=== PATIENT | female | born 1975 | race Caucasian/White ===

== ENCOUNTER 2016-12-11 13:15 | Emergency (ER) | payer BC, OTHER ==
[2016-12-11 15:13] VITALS: BP 131/85
--- NOTE | 2016-12-11 16:16 | RAD ---
INDICATION: Chest pain and shortness of breath COMPARISON: None TECHNIQUE: PA and lateral views of the chest were obtained. FINDINGS: The heart and mediastinum are normal in size and contour. The lungs are grossly clear. There is no evidence of large pleural effusion. Visualized bones are normal for the patient's age. There is no radiographic evidence of free air beneath the diaphragm IMPRESSION: No radiographic evidence of acute cardiopulmonary disease.
--- NOTE | 2016-12-11 23:51 | UC ---
Magdaleno Blanc Aidan, scribed for Amrita Rodas MD on 12/11/16 at 1556 . Cardiac HPI - HPI Summary HPI Summary: 41 y/o female presents to the Urgent Care with a complaint of acute, constant, moderate left upper chest pain (10) described as a dull ache that sometimes radiates down her arm and to her back that has persisted for roughly 1 month. The pain is aggravated by inhalation, aggravated lying flat. No rash. No GI sx. She has had a cough, min productive, but has improved. Associated symptoms include SOB for the past 3 weeks, a mild fever of 100.3. Increased episodes of blue discoloration to hands (to which she attributes to Still's dz) . 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 - History of Current Complaint Chief Complaint: UCChestPain Stated Complaint: DULL CHEST PAIN,SOB Time Seen by Provider: 12/11/16 15:38 Hx Obtained From: Patient Onset/Duration: Gradual Onset, Lasting Weeks, Still Present Timing: Constant Initial Severity: Moderate Current Severity: Moderate Pain Intensity: 6 Chest Pain Location: Left Anterior, Left Lateral Character: Dull/Aching Aggravating: Deep Breaths - inhalation Alleviating: Nothing - unknown Associated Signs & Symptoms: Positive: SOB - for the past 3 weeks, Fever - mild 100.3. Negative: Negative - blue discoloration on hand that is temperature sensitive - Allergy/Home Medications Allergies/Adverse Reactions: Allergies Allergy/AdvReac Type Severity Reaction Status Date / Time Cefdinir [From Omnicef] Allergy Intermediate Rash Verified 12/11/16 18:44 Penicillins Allergy Intermediate Rash Verified 12/11/16 18:44 Sodium Benzoate Allergy Intermediate Rash Verified 12/11/16 18:44 [From Omnicef] Home Medications: Home Medications Butalb/Acetamin/Caff TAB* [Fioricet TAB*] 12/11/16 [History] Esomeprazole Magnesium [Nexium] 12/11/16 [History] Meclizine TAB* [Antivert 12.5 TAB*] 12/11/16 [History] Tizanidine HCl 12/11/16 [History Confirmed 12/11/16] PMH/Surg Hx/FS Hx/Imm Hx - Additional Past Medical History Additional PMH: Dx of Lupus andf Still's disease Previously Healthy: Yes - but see hpi Endocrine History Of: Denies: Diabetes, Thyroid Disease Cardiovascular History Of: Reports: Cardiac Disorders - Mitral valve prolapse Denies: Hypertension Respiratory History Of: Denies: COPD, Asthma GI/ History Of: Denies: Ulcer - Surgical History Surgical History: Yes Surgery Procedure, Year, and Place: C section x2 - Family History Known Family History: Positive: Hypertension - Social History Occupation: Employed Full-time Lives: Alone Alcohol Use: None Substance Use Type: None Smoking Status (MU): Never Smoked Tobacco Review of Systems Constitutional: Fever - mild 100.3 Skin: Other - blue discoloration to hand that is temperature sensitive Eyes: Negative ENT: Negative Respiratory: Shortness Of Breath Cardiovascular: Chest Pain Gastrointestinal: Negative Genitourinary: Negative Motor: Negative Neurovascular: Negative Musculoskeletal: Negative Neurological: Negative Psychological: Negative All Other Systems Reviewed And Are Negative: Yes Physical Exam Triage Information Reviewed: Yes Appearance: Well-Nourished Vital Signs: Initial Vital Signs Temp 98.8 F 12/11/16 15:08 Pulse 90 12/11/16 15:08 Resp 18 12/11/16 15:08 BP 131/85 12/11/16 15:08 Pulse Ox 100 12/11/16 15:08 Vital Signs Reviewed: Yes Eye Exam: Normal ENT Exam: Normal Neck exam: Normal Respiratory Exam: Normal, Other - no dyspnea, no tachypnea Respiratory: Positive: Chest non-tender, Lungs clear, Normal breath sounds, No respiratory distress, No accessory muscle use Cardiovascular Exam: Normal Cardiovascular: Positive: RRR, No Murmur, Pulses Normal, Brisk Capillary Refill , Other: - good general skin color, good capillary refill Abdominal Exam: Normal Abdomen Description: Positive: Nontender, No Organomegaly, Soft Bowel Sounds: Positive: Present Musculoskeletal Exam: Normal Musculoskeletal: Positive: Strength Intact Neurological Exam: Normal, Other - nonfocal, grossly intact Psychological Exam: Normal, Other - conversing easily and approperiately Skin Exam: Normal, Other - no visible or reported rash Hands currently not blue. Diagnostics - Radiology CHEST XR Xray Interpretation: No Acute Changes - IMPRESSION: NO RADIOGRAPHIC EVIDENCE OF ACUTE CARDIOPULMONARY DISEASE Radiology Interpretation Completed By: Radiologist - EKG Cardiac Rate: NL - 78 Cardiac Rhythm: Sinus: Normal - NORMAL SINUS RHYTHM, CO: 177, QTC 436 Re-Evaluation - Re-Evaluation First Eval Re-Evaluation Time: 16:40 - Dr. Rodas discussed the possibility of a thrombosis and the patient agreed that the best discourse is transfer to the ED , which is what Dr. Rodas recommends. Change: Unchanged - Assessment/Plan Course Of Treatment: No new problems while in the [facility]. I reviewed the EKG and CXR with Ms. Calles. No change EKG since 2011, sinus rhythm. Ms. Calles has a hx of Still's disease. I considered the below diff dx's. While I can not completely exclude, I doubt primary cardiac origen (although she may benefit from a future holter monitor), I am concerned about pulmonary issues not evident on cxr. Including albeit not limited to pulm emb, pulm htn ( although ekg ok), infectious, etc. Recommend further evaluation in the ER. Ms. Calles carefully considered. She will go, but pov. Verbally reviewed recommendation for EMS, but she declines. I called the ED d/w PA. Ms. Calles was given the opportunity to ask several questions to which I answered to the best of my ability. - Clinical Impression Provider Diagnoses: L upper chest pain Discharge - Discharge Plan Condition: Stable Disposition: TRANS HIGHER LVL OF CARE FAC Referrals: Louisa Jones MD [Primary Care Provider] - The documentation as recorded by the Magdaleno canales Aidan accurately reflects the service I personally performed and the decisions made by me, Amrita Rodas MD.
== END 2016-12-11 20:10 | disposition short-term general hospital (02) ==
LOC: UCEAST 13:15
DX: R07.9 Chest pain, unspecified (principal); I34.1 Nonrheumatic mitral (valve) prolapse; Z88.0 Allergy status to penicillin; M08.20 Juvenile rheumatoid arthritis with systemic onset, unspecified site
CPT/HCPCS: 71020; 93005; 99202; G0463

== ENCOUNTER 2016-12-11 18:41 | Emergency (ER) | payer BC ==
[2016-12-11 19:56] LABS: Hematocrit 37 % (35-47); Hemoglobin 12.2 g/dl (12.0-16.0); Mean Corpuscular HGB Conc 33 g/dl (31-36); Mean Corpuscular Hemoglobin 27 pg (27-31); Mean Corpuscular Volume 82 fL (80-97); Mean Platelet Volume 8 um3 (7.4-10.4); Red Blood Count 4.47 10^6/ul (4.0-5.4); Red Cell Distribution Width 13 % (10.5-15); White Blood Count 8.3 10^3/ul (3.5-10.8)
[2016-12-11 20:11] LABS: Albumin 3.8 g/dL (3.2-5.2); BUN/Creatinine Ratio 13.8 (8-20); Calcium 9.2 mg/dL (8.6-10.3); EGFR African American 102.2 (>60); EGFR Non-African American 79.4 (>60); Globulin 3.4 g/dL (2-4); Magnesium 1.9 mg/dL (1.9-2.7); Potassium 3.3 mmol/L (3.5-5.0); Total Bilirubin 0.4 mg/dL (0.2-1.0); Total Protein 7.2 g/dL (6.4-8.9)
[2016-12-11 20:42] LABS: Erythrocyte Sed Rate 41 mm/Hr (0-14)
--- NOTE | 2016-12-11 20:53 | ED ---
Ajit Blanc Billy, scribed for Derrick Bales MD on 12/11/16 at 1918 . HPI Chest Pain - HPI Summary HPI Summary: Patient is a 41 year-old female coming to [facility] presenting with intermittent left anterior chest pain for the last month. Pain severity 6/10. She states that the symptoms worsened 2 days ago, when she decided to begin a new exercise regimen. During that time, she began to feel fatigue, SOB, palpitations, and she has had discolored, blue fingertips. Patient has informed her PCP, Dr. Jones, who referred her to the ED. - History of Current Complaint Chief Complaint: EDChestPainROMI Time Seen by Provider: 12/11/16 19:11 Hx Obtained From: Patient Onset/Duration: Started Weeks Ago, Worse Since - 2 days ago Timing: Intermittent Initial Severity: Moderate Current Severity: Moderate Pain Intensity: 6 Pain Scale Used: 0-10 Numeric Chest Pain Location: Left Anterior Chest Pain Radiates: No Aggravating Factor(s): Exertion Alleviating Factor(s): Nothing Associated Signs and Symptoms: Positive: Chest Pain, Shortness of Breath, Palpitations, Other: - fatigue; discolored blue fingers/hands - Allergy/Home Medications Allergies/Adverse Reactions: Allergies Allergy/AdvReac Type Severity Reaction Status Date / Time Cefdinir [From Omnicef] Allergy Intermediate Rash Verified 12/11/16 18:44 Penicillins Allergy Intermediate Rash Verified 12/11/16 18:44 Sodium Benzoate Allergy Intermediate Rash Verified 12/11/16 18:44 [From Omnicef] PMH/Surg Hx/FS Hx/Imm Hx Endocrine/Hematology History: Reports: Hx Systemic Lupus Erythematosus Denies: Hx Diabetes, Hx Thyroid Disease Cardiovascular History: Reports: Other Cardiovascular Problems/Disorders - MITROVALVE PROLAPSE Denies: Hx Hypertension Respiratory History: Denies: Hx Asthma, Hx Chronic Obstructive Pulmonary Disease (COPD) GI History: Denies: Hx Ulcer - Surgical History Surgery Procedure, Year, and Place: C section x2 Infectious Disease History: No Infectious Disease History: Denies: Hx Hepatitis, Hx Human Immunodeficiency Virus (HIV), Traveled Outside the [place] in Last 30 Days - Family History Known Family History: Positive: Hypertension - Social History Alcohol Use: None Substance Use Type: Reports: None Smoking Status (MU): Never Smoked Tobacco Review of Systems Positive: Fatigue Positive: Palpitations, Chest Pain Positive: Shortness Of Breath Positive: Other - blueness in the hands All Other Systems Reviewed And Are Negative: Yes Physical Exam Triage Information Reviewed: Yes Vital Signs On Initial Exam: Initial Vitals Temp Pulse Resp BP Pulse Ox 97.2 F 86 18 123/76 100 12/11/16 18:44 12/11/16 18:44 12/11/16 18:44 12/11/16 18:44 12/11/16 18:44 Vital Signs Reviewed: Yes Appearance: Positive: Well-Appearing, No Pain Distress Skin: Positive: Warm Head/Face: Positive: Normal Head/Face Inspection Eyes: Positive: JOANNE ENT: Positive: Hearing grossly normal Neck: Positive: Supple Respiratory/Lung Sounds: Positive: Clear to Auscultation, Breath Sounds Present Cardiovascular: Positive: RRR Abdomen Description: Positive: Nontender, Soft Bowel Sounds: Positive: Present Musculoskeletal: Positive: Strength/ROM Intact Neurological: Positive: Sensory/Motor Intact, Alert, Oriented to Person Place, Time Psychiatric: Positive: Affect/Mood Appropriate Diagnostics - Vital Signs Vital Signs Temp Pulse Resp BP Pulse Ox 12/11/16 18:54 86 99 12/11/16 18:53 132/72 12/11/16 18:44 97.2 F 86 18 123/76 100 - Laboratory Result Diagrams: 12/11/16 19:45 12/11/16 19:45 Lab Statement: Any lab studies that have been ordered have been reviewed, and results considered in the medical decision making process. - EKG 1851 EKG Interpretation: NSR 80 bpm, no ST elevation Re-Evaluation - Re-Evaluation First Eval Change: Improved - results d/w pt Chest Pain Course/Dx - Diagnoses Provider Diagnoses: Chest pain Discharge - Discharge Plan Condition: Stable Disposition: HOME Patient Education Materials: Chest Pain (ED) Referrals: Louisa Jones MD [Primary Care Provider] - The documentation as recorded by the Ajit canales Billy accurately reflects the service I personally performed and the decisions made by , Derrick Bales MD.
[2016-12-11 21:00] VITALS: BP 110/66
== END 2016-12-11 21:15 | disposition home or self-care (01) ==
LOC: ED 18:41
DX: R07.9 Chest pain, unspecified (principal); R06.02 Shortness of breath; R00.2 Palpitations; R53.83 Other fatigue
CPT/HCPCS: 36415; 80053; 82550; 83735; 85025; 85379; 85652; 86038; 99282

== ENCOUNTER 2017-04-02 09:25 | Emergency (ER) | payer OTHER ==
[2017-04-02] MEDS ORDERED: Cyclobenzaprine TAB* 10 MG PO ONE (10:11)
--- NOTE | 2017-04-02 10:33 | RAD ---
Indication: Severe thoracic pain without injury. Comparison: December 11, 2016 PA and lateral chest radiographs. Technique: Standing AP and lateral views centered at the thoracic lumbar junction. Report: Normal lower thoracic and visualized lumbar spine alignment. The vertebral bodies are normal in height. No fracture or focal osseous lesions evident. Preserved disc spaces throughout. Unremarkable paravertebral soft tissue contours. IMPRESSION: Negative radiographic exam of the dorsal spine.
[2017-04-02] MEDS ORDERED: traMADol TAB* 50 MG ONE ×2 (11:02→11:05)
[2017-04-02] MEDS ORDERED: traMADol TAB* 50 MG PO ONE (11:07)
--- NOTE | 2017-04-02 11:45 | ED ---
Back Pain - HPI Summary HPI Summary: Patient presents with 1 week worsening thoracic back pain with no acute trauma or injury known. Pain is to the left of the thoracic spine and radiates to the rib cage. Denies SOB. Pain is 10/10, stabbing and constant. Worse with movement, better with rest and standing. She had a massage 3 days ago which had improved her symptoms slightly and felt better yesterday - pain was 5/10 and constant. Today, worsening pain upon wakening and stating she could not get up off the floor. She takes muscle relaxers at home for migraines without relief of symptoms. Denies other pain or complaints at this time. - History of Current Complaint Chief Complaint: EDBackInjuryPain Stated Complaint: BACK PAIN Time Seen by Provider: 04/02/17 09:34 Hx Obtained From: Patient Hx Last Menstrual Period: 3 wks ago Onset/Duration: Sudden Onset Onset/Duration: Started Days Ago Timing: Constant Back Pain Location: Is Discrete @ - lateral to the thoracic spine Pain Intensity: 10 Pain Scale Used: 0-10 Numeric Character: Sharp, Aching, Throbbing Aggravating Symptom(s): Movement Alleviating Symptom(s): Rest Associated Signs And Symptoms: Positive: Negative - Risk Factors AAA Risk Factors: Negative TAD Risk Factors: Negative Cauda Equina Risk Factors: Negative Epidural Abscess Risk Factors: Negative - Allergies/Home Medications Allergies/Adverse Reactions: Allergies Allergy/AdvReac Type Severity Reaction Status Date / Time Cefdinir [From Omnicef] Allergy Intermediate Rash Verified 12/11/16 18:44 Penicillins Allergy Intermediate Rash Verified 12/11/16 18:44 Sodium Benzoate Allergy Intermediate Rash Verified 12/11/16 18:44 [From Omnicef] PMH/Surg Hx/FS Hx/Imm Hx Previously Healthy: Yes Endocrine/Hematology History: Reports: Hx Systemic Lupus Erythematosus Denies: Hx Diabetes, Hx Thyroid Disease Cardiovascular History: Reports: Other Cardiovascular Problems/Disorders - MITROVALVE PROLAPSE Denies: Hx Hypertension Respiratory History: Denies: Hx Asthma, Hx Chronic Obstructive Pulmonary Disease (COPD) GI History: Denies: Hx Ulcer - Surgical History Surgery Procedure, Year, and Place: C section x2 - Immunization History Hx Pertussis Vaccination: No Immunizations Up to Date: Unable to Obtain/Confirm Infectious Disease History: No Infectious Disease History: Denies: Hx Hepatitis, Hx Human Immunodeficiency Virus (HIV), Traveled Outside the [place] in Last 30 Days - Family History Known Family History: Positive: Hypertension - Social History Occupation: Employed Full-time Lives: With Family Alcohol Use: None Hx Substance Use: No Substance Use Type: Reports: None Smoking Status (MU): Never Smoked Tobacco Review of Systems Constitutional: Negative Eyes: Negative Cardiovascular: Negative Respiratory: Negative Gastrointestinal: Negative Positive: no symptoms reported, see HPI Positive: Arthralgia, Myalgia Skin: Negative Psychological: Normal All Other Systems Reviewed And Are Negative: Yes Physical Exam Triage Information Reviewed: Yes Vital Signs On Initial Exam: Initial Vitals Temp Pulse Resp BP Pulse Ox 99.1 F 104 20 127/86 100 04/02/17 09:29 04/02/17 09:29 04/02/17 09:29 04/02/17 09:29 04/02/17 09:29 Vital Signs Reviewed: Yes Appearance: Positive: Well-Appearing, No Pain Distress, Well-Nourished Skin: Positive: Warm, Skin Color Reflects Adequate Perfusion Neck: Positive: Supple, Nontender, No Lymphadenopathy Respiratory/Lung Sounds: Positive: Clear to Auscultation, Breath Sounds Present Cardiovascular: Positive: Normal, RRR Musculoskeletal: Positive: Pain @ - lateral to the T8 spine at 10/10 Neurological: Positive: Sensory/Motor Intact, Alert, Oriented to Person Place, Time, Speech Normal Psychiatric: Positive: Normal - [place] Coma Scale Coma Scale Total: 15 Diagnostics - Vital Signs Vital Signs Temp Pulse Resp BP Pulse Ox 04/02/17 09:50 97.9 F 78 20 120/78 100 04/02/17 09:29 99.1 F 104 20 127/86 100 - Laboratory Lab Statement: Any lab studies that have been ordered have been reviewed, and results considered in the medical decision making process. Back Pain Course/Dx - Course Course Of Treatment: lateral to the T8 spine at 10/10 - xray negative for findings. Pain out of proportion to PE and xray so patient sent to CT at her request. CT negative for any findings. Will add on steroids and pain management to her mucsle relaxer. Encouraged massage therapy as well. Patient will follow up if any symptoms become worse. - Diagnoses Differential Diagnosis/HQI/PQRI: Positive: Herniated Disc, Strain, Sprain Provider Diagnoses: Spasm of thoracic back muscle Images - Images Full Body (No Head): 1 - pain on palpation Discharge - Discharge Plan Condition: Stable Disposition: HOME Prescriptions: predniSONE TAB* [Deltasone TAB*] 50 mg PO DAILY #5 tab MDD 1 traMADol TAB* [Ultram*] 25 mg PO Q6HR PRN #12 tab MDD 4 PRN Reason: Pain Patient Education Materials: Lower Back Exercises (ED), Thoracic Back Strain ( ED) Forms: *Work Release Referrals: Louisa Jones MD [Primary Care Provider] - Additional Instructions: Tramadol as needed for discomfort. Prednisone daily in the morning for 5 days Ibuprofen 600mg three times daily with meals for discomfort. Return to ED if symptoms worsen or fail to improve, notice worsening swelling, warmth or redness around the joint, develop fever, or pain is uncontrolled with OTC medications. Moist heat to the area for comfort. Warm showers or baths may improve symptoms. It is important to remain mobile as tolerated to prevent stiffening of the joints and delay healing. Follow up with your PCP. If symptoms remain for > 6 weeks, please seek special medical attention from an orthopedic physician.
--- NOTE | 2017-04-02 11:53 | RAD ---
HISTORY: Thoracic spine pain COMPARISONS: Plain film dated April 02, 2017 TECHNIQUE: Multiple contiguous axial CT scans were obtained of the thoracic spine without intravenous contrast, with coronal and sagittal multiplanar reformations. FINDINGS: SPINAL CANAL: Evaluation of the central canal is limited on CT technique; however, there is no obvious canalicular mass or epidural hemorrhage. ALIGNMENT: The alignment is normal. VERTEBRAL BODIES: The vertebral bodies are preserved in height. The bones are normal in attenuation. JOINTS: No subluxation or dislocation MUSCULATURE: Unremarkable INTERVERTEBRAL DISCS: There is mild diffuse loss of intervertebral disc height throughout the spine. AXIAL IMAGES: There is no osseous central canal stenosis or neuroforaminal narrowing. SOFT TISSUES: The visualized soft tissues of the chest and abdomen are unremarkable. OTHER: None IMPRESSION: MILD DEGENERATIVE DISC DISEASE. NO OSSEOUS NEURAL FORAMINAL NARROWING OR CENTRAL CANAL STENOSIS.
[2017-04-02 13:00] VITALS: BP 121/62
== END 2017-04-02 12:58 | disposition home or self-care (01) ==
LOC: ED 09:25
DX: M62.830 Muscle spasm of back (principal)
CPT/HCPCS: 72080; 72128; 99282; A9270-GY

== ENCOUNTER 2017-07-06 07:27 | Day surgery (SDC) | payer BC, OTHER ==
[2017-07-06] MEDS ORDERED: Morphine INJ* 4 MG/ML 1 ML CARPUJECT IV ONE ×2 (08:03→09:10)
[2017-07-06] MEDS ORDERED: Ondansetron INJ* 2 MG/ML VIAL IV ONE ×2 (08:03→09:10)
[2017-07-06] MEDS ORDERED: NS 0.9% 1000 ML* 1,000 ML IV ONE (08:03)
[2017-07-06 08:23] LABS: Hematocrit 37 % (35-47); Hemoglobin 12.4 g/dl (12.0-16.0); Mean Corpuscular HGB Conc 33 g/dl (31-36); Mean Corpuscular Hemoglobin 28 pg (27-31); Mean Corpuscular Volume 83 fL (80-97); Mean Platelet Volume 8 um3 (7.4-10.4); Red Blood Count 4.46 10^6/ul (4.0-5.4); Red Cell Distribution Width 12 % (10.5-15); White Blood Count 13.6 10^3/ul (3.5-10.8)
[2017-07-06 08:41] LABS: ALT 16 U/L (7-52); AST 17 U/L (13-39); Alkaline Phosphatase 60 U/L (34-104); Anion Gap 8 mmol/L (2-11); BUN/Creatinine Ratio 17.8 (8-20); Blood Urea Nitrogen 13 mg/dL (6-24); CO2 Carbon Dioxide 24 mmol/L (22-32); Calcium 9.1 mg/dL (8.6-10.3); Chloride 103 mmol/L (101-111); EGFR Non-African American 87.9 (>60); Globulin 3.5 g/dL (2-4); Glucose 120 mg/dL (70-100); Lipase < 10 U/L (11.0-82.0); Potassium 4.1 mmol/L (3.5-5.0); Sodium 135 mmol/L (133-145); Total Protein 7.5 g/dL (6.4-8.9)
[2017-07-06] MEDS ORDERED: Iohexol 300* (CONTRAST) 10 ML SDV IV ONE (09:36)
--- NOTE | 2017-07-06 11:05 | RAD ---
CLINICAL HISTORY: ] Abdominal pain with vomiting. Relevant surgical history includes x2. COMPARISON: CT abdomen pelvis December 10, 2012 TECHNIQUE: Contrast enhanced CT examination of the abdomen and pelvis from the lung bases through the initial tuberosities. The patient received 100 mL Omnipaque 300 intravenously prior to imaging.The patient received oral contrast as well prior to imaging. FINDINGS: VISUALIZED LUNG BASES: The visualized lung bases are grossly clear. There is no pleural effusion. ABDOMEN AND PELVIS: The liver, spleen, pancreas and adrenal glands are grossly normal in appearance. The gallbladder is normal. The kidneys are normal in appearance without focal mass, calcification or signs of hydronephrosis. The oral contrast as only progressed as far as the duodenum which limits evaluation of the small bowel and colon. The small and large bowel are not distended. Best depicted on the coronal plane images (image 34 of 109) the cecum is located at the midline abdomen immediately superior to the urinary bladder. The appendix courses towards the patient's right of midline before descending inferiorly. At the proximal portion of the appendix there is hyperdense material consistent with an appendicolith (image 32). Distal to this the appendix is fluid-filled measuring 14 mm in diameter (axial image 61 through 65) with more hyperdense material in its distalmost portion (image 65). There is faint periappendiceal infiltration of the fat. The gas and stool-filled colon is otherwise grossly normal in appearance. There is no gross retroperitoneal or mesenteric lymphadenopathy. Compared to the contralateral right ovarian vein, the left ovarian vein appears to be contrast filled and is top normal measuring 6 mm in diameter (image 32 of 98). The ovarian vein can be followed inferiorly communicating with mildly enlarged left periuterine veins measuring 6 mm in diameter (image 68). There is trace fluid in the cul-de-sac. The pelvic viscera is otherwise normal in appearance. The abdominal aorta and iliac arteries are normal in course and diameter. There are no sinister bone lesions. IMPRESSION: 1. In the correct clinical setting CT findings are most consistent with acute appendicitis as described in detail above. 2. Incidentally noted is the appearance of reflux in the left ovarian vein communicating with mildly enlarged left periuterine veins. Such an appearance could be seen in the setting of pelvic congestion syndrome which is characterized by a vague constellation of symptoms including gravity dependent, late day pelvic pain, varicose veins overlying the pelvis and lower extremities, dyspareunia and/or inconsistent gastrointestinal symptoms.
[2017-07-06] MEDS ORDERED: fentaNYL* 50 MCG/ML 2 ML VIAL (100 MCG VIAL) IV SLOW PU ONE ×3 (11:20→12:33)
[2017-07-06] MEDS ORDERED: fentaNYL* 50 MCG/ML 2 ML VIAL (100 MCG VIAL) ONE ×3 (11:22→15:33)
[2017-07-06 11:23] LABS: Urine Bacteria Absent (Absent); Urine Bilirubin Negative (Negative); Urine Glucose Negative (Negative); Urine Nitrite Negative (Negative)
[2017-07-06] MEDS ORDERED: Famotidine IV* 10 MG/ML 2 ML (20 mg) IV SLOW PU ONE (12:56)
[2017-07-06] MEDS ORDERED: Famotidine IV* 10 MG/ML 2 ML (20 mg) ONE (13:01)
[2017-07-06] MEDS ORDERED: Levofloxacin 750 MG IVPREMIX(* 750 MG/150 ML BAG ONE (13:24)
[2017-07-06] MEDS ORDERED: Atracurium* 10 MG/ML 10 ML VIAL ONE (13:41)
[2017-07-06] MEDS ORDERED: Midazolam* 1 MG/ML 5 ML VIAL (5 MG) ONE (13:41)
[2017-07-06] MEDS ORDERED: KETAMINE HCL* 50 MG/ML 10 ML VIAL ONE (13:41)
[2017-07-06] MEDS ORDERED: Bupivacaine 0.25% SDV* 30 ML ONE (13:52)
[2017-07-06] MEDS ORDERED: Clindamycin 900 MG IVPREMIX(* 900 MG/50 ML SDV IV ONE (13:53)
--- NOTE | 2017-07-06 14:11 | HP ---
CC: Dr. Louisa Jones DATE OF ADMISSION: 07/06/2017. DATE OF DICTATION: 07/06/2017. CHIEF COMPLAINT: Abdominal pain. HISTORY OF PRESENT ILLNESS: The patient is a 42-year-old female who was awakened in the middle of the night with abdominal pain. She describes it as primary being across the central abdomen, but then she states it also went up into the epigastric area, up into the chest and up to her shoulder. Subsequently, she developed some nausea and vomiting. She has had no diarrhea. Denies fever and chills. No recent trauma or injury. PAST SURGICAL HISTORY: Two C-sections and some dental surgery. MEDICATIONS: 1. control pills. 2. Nexium prn for heartburn. 3. Fioricet prn for migraines. 4. Meclizine prn for dizziness. ALLERGIES: PENICILLIN AND CEPHALOSPORINS, POSSIBLY LACTOSE INTOLERANCE. FAMILY HISTORY: Negative for any bleeding or clotting tendencies as far as she knows. 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 She is . They have two children at home. They also keep horses. She is not a heavy smoker or drinker. REVIEW OF SYSTEMS: Positive all over. She has occasional migraines. She has had occasional issues with the esophagus that was diagnosed as some autoimmune disease, although she does not take any suppressive medication. She had a heart murmur when she was younger and that never amounted to anything. She has a history of hepatic adenoma. History of Gilbert's disease. She also gives a history of Von Willebrand disease, although she says they told her that is was intermittent, it was not there all the time. She did not have any treatment for her C-sections. She says with one of the C-sections she bleed a lot, with one of them she did not bleed at all. She denies any neuromuscular or psych issues. PHYSICAL EXAMINATION GENERAL: She is a well-developed, well-nourished female consistent with stated age. SKIN: Warm and well-perfused. She is not diaphoretic. She is not jaundice. She does appear quite uncomfortably and ill. VITAL SIGNS: She is afebrile with a pulse of 82, respirations 16, blood pressure 126/78. HEENT: Head and neck are atraumatic. There is no obvious adenopathy. LUNGS: Breathing is easy and unlabored. HEART: Regular. I do not appreciate any murmurs. ABDOMEN: Soft, nondistended, exquisitely tender in the right lower quadrant. She has a Rovsing's sign and referred rebound tenderness. There is no guarding. There is no palpable mass. There is no hernia. EXTREMITIES: Well-perfused and without edema. LABORATORY DATA: Laboratory studies show a white blood count of 13,600 with normal platelets. There is a left shift on the differential. Hemoglobin is normal. Electrolytes, lactic acid, and bilirubin are all normal. C-reactive protein is mildly elevated at 20. Urinalysis is concentrated without any evidence of urinary infection. CT scan is consistent with acute appendicitis. IMPRESSION: Jhlsw-dsi-nbpv-old female with acute appendicitis with appendiceal fecal lithiasis. She also has a questionable history of Von Willebrand disease as well as some kind of untreated autoimmune disorder. PLAN: I discussed the case with Dr. Kerr and his feeling was that since the patient had had two C-sections without having DDAVP or other treatment for her Von Willebrand and that although she had bled somewhat with one of the C- sections, did not bleed enough to require transfusion, we felt that she could undergo laparoscopic appendectomy without treating the Von Willebrand. Therefore, we will proceed with laparoscopic appendectomy done some time today and we will give her appropriate prophylactic antibiotics. [id number]/[facility] #: [id number] APARNA
[2017-07-06] MEDS ORDERED: Scopolamine 1.5 mg* PATCH TRANSDERM PRN (14:13)
[2017-07-06] MEDS ORDERED: PROCHLORPERAZINE INJ 5 MG/ML 2 ML VIAL IV PRN (14:13)
[2017-07-06] MEDS ORDERED: oxyCODONE/Acetamin 5/325 MG* TAB PO PRN ×2 (14:13→15:35)
[2017-07-06] MEDS ORDERED: Ondansetron INJ* 2 MG/ML VIAL ONE (14:46)
[2017-07-06] MEDS ORDERED: Dexamethasone IV* 4 MG/ML 1 ML (4 MG) ONE (14:46)
[2017-07-06] MEDS ORDERED: Lidocaine 2% PF * 5 ML VIAL ONE (14:46)
[2017-07-06] MEDS ORDERED: PROCHLORPERAZINE INJ 5 MG/ML 2 ML VIAL ONE (14:46)
[2017-07-06] MEDS ORDERED: Propofol* 10 MG/ML 20 ML BTL IV PUSH ONE (14:46)
[2017-07-06] MEDS ORDERED: Glycopyrrolate IV* 0.2 MG/ML 1 ML VIAL ONE (14:48)
[2017-07-06] MEDS ORDERED: Neostigmine Methylsulfate* 2 MG/2 ML SYRINGE ONE (14:48)
[2017-07-06] MEDS ORDERED: Succinylcholine* 20 MG/ML 10 ML VIAL ONE (15:19)
[2017-07-06] MEDS ORDERED: Phenylephrine IV* 40 MCG/ML 10 ML SYRINGE ONE (15:19)
[2017-07-06] MEDS ORDERED: Morphine INJ* 4 MG/ML 1 ML CARPUJECT ONE (15:33)
[2017-07-06] MEDS: fentaNYL* 50 MCG/ML 2 ML VIAL (100 MCG VIAL) IV PRN ×2 (15:34→15:46)
[2017-07-06] MEDS: Morphine INJ* 2 MG/ML 1 ML CARPUJECT IV PRN ×2 (15:37→15:46)
--- NOTE | 2017-07-06 15:41 | PN ---
Progress Note - Progress Note Date of Service: 07/06/17 Note: Brief Operative Note: Pre-op: Acute appendicitis Post-op: Same Procedure: Laparoscopic appendectomy Surgeon: Dr. Basilio General Counselor: MERI Keen Anaesthesia: GETA EBL: Minimal Fluids: LR 1000 cc Drains: None Catheter: None Specimen: Vermiform Appendix Findings: See dictated op note
[2017-07-06 18:42] VITALS: BP 120/82
--- NOTE | 2017-07-07 03:23 | OP ---
CC: Dr. Louisa Jones * DATE OF OPERATION: 07/06/17 - [facility] DATE OF : 77 SURGEON: Derrick Basilio MD RETAIL WIRELESS SALES CONSULTANT: MERI Adler ANESTHESIOLOGIST: Dr. Derrick Manriquez. ANESTHESIA: General anesthetic, local infiltration. PRE-OP DIAGNOSIS: Appendicitis. POST-OP DIAGNOSIS: Appendicitis. OPERATIVE PROCEDURE: Laparoscopic appendectomy. DESCRIPTION OF PROCEDURE: The patient was supine on the operative table. After adequate general anesthetic, compression stockings, Victor Manuel Hugger warmer, and intravenous antibiotics, the abdomen was prepped with antiseptic, draped in a sterile fashion. Local infiltrative anesthesia was administered and small umbilical incision was created. Blunt port cannula was placed, insufflation was carried out with carbon dioxide, additional cannulae 5 mm left lower quadrant and left mid abdomen were placed through small stab wounds under direct vision. There were some omental adhesions up to the anterior abdominal wall and these were taken down with scissor cautery with no bleeding and the appendix was then tented upward. The base of the appendix was skinny and normal. The rest of the appendix was dilated to over a centimeter and with inflammatory change. The base of the appendix was out using a [place] dissector and divided using an Endo CHRISTINE stapler with a 45 mm gaytan cartridge. The mesoappendix was divided using a single firing of a 45 mm gallegos cartridge. This created good hemostasis. The operative field was swabbed out with a 4 x 4 and again examined, hemostasis was excellent. The appendix was placed in the retrieval bag and brought out through the umbilical site along with the 4x4. A pneumoperitoneum was allowed to escape. Umbilical fascia was closed with 0 Vicryl. Skin was closed with 5-0 Vicryl followed by Steri- Strips. She tolerated the procedure well, was awakened and brought to the Recovery in good condition. There were no complications. No drains. Pathologic specimen was appendix. Sponge and instrument counts correct. Estimated blood loss was less than 10 mL. [id number]/[facility] #: [id number] [facility]
--- NOTE | 2017-07-07 18:49 | ED ---
Fox Blanc Thomas, scribed for Yuniel Villagomez MD on 07/06/17 at 0816 . Abdominal Pain/Female - HPI Summary HPI Summary: The pt is a 42 y/o F presenting to the ED c/o R-sided abd pain that began today at 03:00. The pain radiates to her left abdomen. The pain is rated 10/10. The pain is aggravated by nothing and is alleviated by nothing. Her last meal was last night and she ate pancakes. She did not eat a lot of syrup. The patient has treated the pain with nothing [address] SQL DEVELOPER. Pt additionally c/o N/V. The pain began before the N/V. Pt denies any other complaints at this time. She denies prior episodes of pain similar to this. She is accompanied by a male. - History of Current Complaint Chief Complaint: EDAbdPain Stated Complaint: RT ABD PAIN/VOMITING Time Seen by Provider: 07/06/17 07:44 Hx Obtained From: Patient, Family/Cyber Policy And Strategy Planner - male is present Hx Last Menstrual Period: 3 wks ago Onset/Duration: Lasting Hours - onset this AM at 03:00, Still Present Timing: Constant Severity Currently: Severe - R-sided abdomen Pain Intensity: 10 Pain Scale Used: 0-10 Numeric Location: Other - R-sided abdomen Radiates: Yes Radiates to: Other - L-sided abdomen Aggravating Factor(s): Nothing Alleviating Factor(s): Nothing Associated Signs and Symptoms: Positive: Nausea, Vomiting. Negative: Fever Allergies/Adverse Reactions: Allergies Allergy/AdvReac Type Severity Reaction Status Date / Time Cefdinir [From Omnicef] Allergy Intermediate Rash Verified 12/11/16 18:44 Penicillins Allergy Intermediate Rash Verified 12/11/16 18:44 Sodium Benzoate Allergy Intermediate Rash Verified 12/11/16 18:44 [From Omnicef] Home Medications: Home Medications Ppqqeewuhn-Nyrryqz-Egbkcdkl [Fiorinal 50-325-40 mg-] 1 - 2 cap PO DAILY PRN [History Confirmed 07/06/17] Drospirenone-Ethinyl Estradiol [Gianvi 3-0.02 mg] 1 tab PO DAILY 07/06/17 [ History Confirmed 07/06/17] Esomeprazole(NF) [NexIUM(NF)] 40 mg PO DAILY 07/06/17 [History Confirmed ] Meclizine TAB* [Antivert 12.5 TAB*] 25 mg PO BID PRN 07/06/17 [History Confirmed 07/06/17] PMH/Surg Hx/FS Hx/Imm Hx Previously Healthy: No - Stills disease, Von Willebrand disease, Gilbert syndrome Endocrine/Hematology History: Reports: Hx Systemic Lupus Erythematosus Denies: Hx Diabetes, Hx Thyroid Disease Cardiovascular History: Reports: Other Cardiovascular Problems/Disorders - MITROVALVE PROLAPSE Denies: Hx Hypertension Respiratory History: Denies: Hx Asthma, Hx Chronic Obstructive Pulmonary Disease (COPD) GI History: Denies: Hx Ulcer - Surgical History Surgery Procedure, Year, and Place: C section x2 Infectious Disease History: No Infectious Disease History: Denies: Hx Hepatitis, Hx Human Immunodeficiency Virus (HIV), Traveled Outside the [place] in Last 30 Days - Family History Known Family History: Positive: Hypertension - Social History Alcohol Use: Rare Hx Substance Use: No Substance Use Type: Reports: None Smoking Status (MU): Never Smoked Tobacco Review of Systems Negative: Fever Positive: Abdominal Pain - R-sided with onset today at 03:00, Vomiting, Nausea All Other Systems Reviewed And Are Negative: Yes Physical Exam - Summary Physical Exam Summary: VITAL SIGNS: Reviewed. GENERAL: Patient is a well-developed and nourished female who is lying comfortable in the stretcher. Patient is not in any acute respiratory distress. HEAD AND FACE: Normocephalic and atraumatic. EYES: PERRLA, EOMI x 2, No injected conjunctiva. EARS: Hearing grossly intact. Ear canals and tympanic membranes are WNL. MOUTH: Oropharynx within normal limits. NECK: Supple, trachea is midline, no adenopathy, no JVD. CHEST: Symmetric, no tenderness at palpation LUNGS: Clear to auscultation bilaterally. No wheezing or crackles. CVS: RRR, S1 and S2 present, no murmurs or gallops appreciated. ABDOMEN: She is tender in the RLQ. There is guarding but no rebound. Soft. No signs of distention. Positive bowel sounds. No masses palpated. No abdominal bruit or pulsations. EXTREMITIES: FROM in all major joints, no edema, no cyanosis or clubbing. NEURO: Alert and oriented x 3. No acute neurological deficits. Speech is normal. SKIN: Dry and warm Triage Information Reviewed: Yes Vital Signs On Initial Exam: Initial Vitals Temp Pulse Resp BP Pulse Ox 98.1 F 80 20 128/74 100 07/06/17 07:32 07/06/17 07:32 07/06/17 07:32 07/06/17 07:32 07/06/17 07:32 Vital Signs Reviewed: Yes - [place] Coma Scale Coma Scale Total: 15 Diagnostics - Vital Signs Vital Signs Temp Pulse Resp BP Pulse Ox 07/06/17 07:44 78 100 07/06/17 07:42 136/79 07/06/17 07:32 98.1 F 80 20 128/74 100 - Laboratory Result Diagrams: 07/06/17 07:59 07/06/17 07:59 Lab Statement: Any lab studies that have been ordered have been reviewed, and results considered in the medical decision making process. - CT CT Abd/Pel CT Interpretation: Positive (See Comments) - 1. In the correct clinical setting CT findings are most consistent with acute appendicitis as described in detail above. 2. Incidentally noted is the appearance of reflux in the left ovarian vein communicating with mildly enlarged left periuterine veins. Such an appearance could be seen in the setting of pelvic congestion syndrome which is characterized by a vague constellation of symptoms including gravity dependent, late day pelvic pain, varicose veins overlying the pelvis and lower extremities , dyspareunia, and/or inconsistent gastrointestinal symptoms. ED physician has reviewed this report and agrees. CT Interpretation Completed By: Radiologist Abdominal Pain Fem Course/Dx - Course Course Of Treatment: The pt is a 42 y/o F presenting to the ED c/o R-sided abd pain that began today at 03:00. The pain radiates to her left abdomen. The pain is rated 10/10. The pain is aggravated by nothing and is alleviated by nothing. Her last meal was last night and she ate pancakes. She did not eat a lot of syrup. The patient has treated the pain with nothing [address] SQL DEVELOPER. Pt additionally c/o N/ V. The pain began before the N/V. Pt denies any other complaints at this time. She denies prior episodes of pain similar to this. She is accompanied by a male. Test results are without significant abnormality except WBC 13.6, glucose 120, and CRP 20. UA is contaminated. CT Abd/Pel is positive for appendicitis. I discussed the case with Dr. Basilio, who will admit the patient to his service for further workup and management. - Diagnoses Provider Diagnoses: Acute appendicitis - Provider Notifications Discussed Care Of Patient With: Derrick Basilio Time Discussed With Above Provider: 11:30 Instructed by Provider To: Other - I consulted with Dr. Basilio, surgery, who [place] [facility] [place] - Discharge Plan Condition: Fair Disposition: ADMITTED TO [facility] Referrals: Louisa Jones MD [Primary Care Provider] - The documentation as recorded by the Fox canales Thomas accurately reflects the service I personally performed and the decisions made by me, Yuniel Villagomez MD.
[2017-07-09] MEDS ORDERED: Scopolomine PATCH Remove* 1 NOTE MISC PATCH OFF ONE (14:14)
== END 2017-07-06 13:59 | disposition home or self-care (01) ==
LOC: ED 07:27 → OR 13:59
PROVIDERS: ATTEND Surgery
DX: K35.80 Unspecified acute appendicitis (principal); R10.31 Right lower quadrant pain; R11.2 Nausea with vomiting, unspecified; I87.8 Other specified disorders of veins; D13.4 Benign neoplasm of liver; I34.1 Nonrheumatic mitral (valve) prolapse
CPT/HCPCS: 36415; 74177; 80053; 81003; 81015; 83605; 83690; 84702; 85025; 86140; 88304; 96374; 96375; 96376; 99284; C1776; J0330; J0780; J1100; J2250; J2270; J2405; J2704; J3010; Q9967

== ENCOUNTER 2017-08-04 13:59 | Emergency (ER) | payer BC ==
[2017-08-04 14:50] VITALS: BP 125/76
--- NOTE | 2017-08-04 15:04 | UC ---
Respiratory Complaint HPI - HPI Summary HPI Summary: Pt presents with a cough for 5 days. Previously she had a ST for about a week, but that subsided and she developed a dry cough and fatigue. Has not tried anything OTC. Denies fever, earache, headache, sinus congestion/pain/pressure, earache, SOB, chest pain, palpitation, or N/V/D/C - History of Current Complaint Chief Complaint: UCRespiratory Stated Complaint: CHEST COLD Hx Obtained From: Patient Hx Last Menstrual Period: last week ?: No Onset/Duration: Gradual Onset Severity Initially: Mild Severity Currently: Moderate Aggravating Factors: Exertion, Deep Breaths - Allergies/Home Medications Allergies/Adverse Reactions: Allergies Allergy/AdvReac Type Severity Reaction Status Date / Time Cefdinir [From Omnicef] Allergy Intermediate Rash Verified 12/11/16 18:44 Penicillins Allergy Intermediate Rash Verified 12/11/16 18:44 Sodium Benzoate Allergy Intermediate Rash Verified 12/11/16 18:44 [From Omnicef] PMH/Surg Hx/FS Hx/Imm Hx Previously Healthy: Yes - Surgical History Surgical History: Yes Surgery Procedure, Year, and Place: C section x2, appy in jun 2017 - Family History Known Family History: Positive: Hypertension - Social History Occupation: Employed Full-time Lives: With Family Alcohol Use: None Substance Use Type: None Smoking Status (MU): Never Smoked Tobacco Review of Systems Constitutional: Negative, Fatigue Skin: Negative Eyes: Negative ENT: Negative Respiratory: Cough Cardiovascular: Negative Gastrointestinal: Negative Neurological: Negative Psychological: Negative All Other Systems Reviewed And Are Negative: Yes Physical Exam Triage Information Reviewed: Yes Appearance: Well-Appearing, Well-Nourished Vital Signs: Initial Vital Signs Temp 98.4 F 08/04/17 14:44 Pulse 97 08/04/17 14:44 Resp 18 08/04/17 14:44 BP 125/76 08/04/17 14:44 Pulse Ox 100 08/04/17 14:44 Vital Signs Reviewed: Yes Eyes: Positive: Conjunctiva Clear ENT: Positive: Hearing grossly normal, Pharynx normal, TMs normal, Uvula midline. Negative: Pharyngeal erythema, Nasal congestion, Nasal drainage, TM bulging, TM dull, TM red, Tonsillar swelling, Tonsillar exudate, Sinus tenderness Neck: Positive: Supple, Nontender, No Lymphadenopathy Respiratory: Positive: Chest non-tender, Lungs clear, No respiratory distress, No accessory muscle use, Wheezing - Throughout Cardiovascular: Positive: RRR, No Murmur, Pulses Normal Neurological: Positive: Alert Psychological: Positive: Age Appropriate Behavior Skin: Negative: rashes UC Diagnostic Evaluation - Laboratory O2 Sat by Pulse Oximetry: 100 Respiratory Course/Dx - Course Course Of Treatment: CXR - Potential obstructive lung disease given elevated lung volumes. No acute cardiopulmonary process evident. Acute Bronchitis. Albuterol inhaler. Z-sobeida - Differential Dx/Diagnosis Differential Diagnosis/HQI/PQRI: Asthma, Bronchitis, Influenza Provider Diagnoses: Acute Bronchitis Discharge - Discharge Plan Condition: Stable Disposition: HOME Prescriptions: Albuterol HFA INHALER* [Ventolin HFA Inhaler*] 1 - 2 puff INH Q6H PRN #1 mdi PRN Reason: Cough Azithromycin TAB* [Zithromax TAB (Z-SOBEIDA) 250 mg #6 tabs] 2 tab PO .TODAY, THEN 1 DAILY #1 sobeida Patient Education Materials: Acute Bronchitis (ED) Referrals: Louisa Jones MD [Primary Care Provider] - Additional Instructions: 1) Drink plenty of water 2) Mucinex OTC for chest congestion If you develop a fever, SOB, chest pain, new or worsening symptoms - please call your PCP or go to the ED.
--- NOTE | 2017-08-04 16:14 | RAD ---
INDICATION: Cough, chest pain/tightness. COMPARISON: December 11, 2016 TECHNIQUE: Dual energy PA and routine lateral views of the chest were obtained. REPORT: Elevated lung volumes. No focal pulmonary lesion, compelling alveolar consolidation, pleural effusion, pneumothorax. The heart, pulmonary vasculature, and mediastinal contours are unremarkable. Unremarkable soft tissue contours and osseous structures. IMPRESSION: Potential obstructive lung disease given elevated lung volumes. No acute cardiopulmonary process evident.
== END 2017-08-04 16:29 | disposition home or self-care (01) ==
LOC: UCEAST 13:59
DX: J02.9 Acute pharyngitis, unspecified (principal)
CPT/HCPCS: 71020; 99212; G0463

== ENCOUNTER 2019-12-09 10:09 | Emergency (ER) | payer BC ==
--- NOTE | 2019-12-09 10:33 | ED ---
Neurological HPI - HPI Summary HPI Summary: This pt is a 44 Y/O F presenting to [facility] with a CC of L sided facial weakness that began 12/08/2019 when she woke up. She states that she assumed that her face was swollen and tried to use Tylenol to decrease the swelling. She states that currently she has eye spasms with L sided blurry vision. She states that her L eyelid will not close correctly or fully. She states that she has decreased sensations to her L cheek. She states R arm tingling which is positional and has been present for the past couple weeks. She denies any neck pain, tingling, or decreased sensations to any other part of her body. Pt denies any fever, chills, erythema of eyes, sore throat, CP, SOB, cough, abdominal pain, N/V, dysuria, hematuria, myalgia, edema, rash, or dizziness. She has a PMHx of systemic lupus erythematosus. She has no aggravating or alleviating factors. She denies any noticeable tick bites or bulls-eye rashes. - History of Current Complaint Chief Complaint: EDNeurologicalDeficit Stated Complaint: FACIAL NUMBESS Time Seen by Provider: 12/09/19 10:17 Last Known Well Date: 12/07/2019 when she went to bed Hx Obtained From: Patient Hx Last Menstrual Period: last week Onset/Duration: Sudden Onset, Started days ago - 2, Still Present Timing: Constant Onset Severity: Moderate Current Severity: Moderate Number of Seizures: 0 Neurological Deficit Location: Facial - L Pain Intensity: 0 Pain Scale Used: 0-10 Numeric Number of Episodes: 0 Aggravating: Nothing Alleviating: Nothing Associated Signs and Symptoms: Positive: Negative - chills, erythema of eyes, sore throat, cough, abdominal pain, dysuria, hematuria, myalgia, edema, rash, Visual Changes - blurry vision from L eye, Numbness - L cheek. Negative: Dizziness, Nausea/Vomiting, Fever, Neck Pain/Stiffness, Chest Pain, Shortness of Breath TPA Considered: No - neurological deficit is limited to L face - Allergy/Home Medications Allergies/Adverse Reactions: Allergies Allergy/AdvReac Type Severity Reaction Status Date / Time cefdinir [From Omnicef] Allergy Rash Verified 12/09/19 10:13 Penicillins Allergy Rash Verified 12/09/19 10:13 Home Medications: Home Medications Butalbital/Aspirin/Caffeine [Fiorinal 50-325-40 mg-] 1 - 2 cap PO DAILY PRN [History Confirmed 07/06/17] Esomeprazole(NF) [Nexium(NF)] 40 mg PO DAILY 07/06/17 [History Confirmed ] Ethinyl Estradiol/Drospirenone [Gianvi 3 mg-0.02 mg Tablet] 1 tab PO DAILY 07/06 [History Confirmed 07/06/17] Meclizine TAB* [Antivert 12.5 TAB*] 25 mg PO BID PRN 07/06/17 [History Confirmed 07/06/17] Albuterol HFA INHALER* [Ventolin HFA Inhaler*] 1 - 2 puff INH Q6H PRN #1 mdi [Rx] Azithromycin TAB* [Zithromax TAB (Z-SOBEIDA) 250 mg #6 tabs] 2 tab PO .TODAY, THEN 1 DAILY #1 sobeida 08/04/17 [Rx] Acyclovir* [Zovirax 400 MG TAB*] 400 mg PO 5ID 7 Days #35 tab 12/09/19 [Rx] predniSONE [Prednisone 20 MG TAB] 20 mg PO QAM 7 Days #7 tablet 12/09/19 [Rx] PMH/Surg Hx/FS Hx/Imm Hx Previously Healthy: Yes Endocrine/Hematology History: Reports: Hx Systemic Lupus Erythematosus Denies: Hx Diabetes, Hx Thyroid Disease Cardiovascular History: Reports: Other Cardiovascular Problems/Disorders - MITROVALVE PROLAPSE Denies: Hx Hypertension Respiratory History: Denies: Hx Asthma, Hx Chronic Obstructive Pulmonary Disease (COPD) GI History: Denies: Hx Ulcer - Cancer History Hx Chemotherapy: No Hx Radiation Therapy: No - Surgical History Surgical History: Yes Surgery Procedure, Year, and Place: C section x2, appy in jun 2017 - Immunization History Immunizations Up to Date: Yes Infectious Disease History: No Infectious Disease History: Denies: Hx Hepatitis, Hx Human Immunodeficiency Virus (HIV), History Other Infectious Disease, Traveled Outside the [place] in Last 30 Days - Family History Known Family History: Positive: Hypertension - Social History Occupation: Employed Full-time Lives: With Family Alcohol Use: None Hx Substance Use: No Substance Use Type: Reports: None Hx Tobacco Use: No Smoking Status (MU): Never Smoked Tobacco Review of Systems Negative: Fever, Chills Positive: Blurred Vision - L eye only. Negative: Erythema Negative: Sore Throat Negative: Chest Pain Negative: Shortness Of Breath, Cough Negative: Abdominal Pain, Vomiting, Nausea Negative: dysuria, hematuria Negative: Myalgia, Edema Negative: Rash Neurological/Mental Status: Negative - dizziness Positive: Weakness - L face, Numbness - L cheek All Other Systems Reviewed And Are Negative: Yes Physical Exam - Summary Physical Exam Summary: Constitutional: Well-developed, Well-nourished, Alert. (-) Distressed Skin: Warm, Dry HENT: Normocephalic; Atraumatic Eyes: Conjunctiva normal Neck: Musculoskeletal ROM normal neck. (-) JVD, (-) Stridor, (-) Tracheal deviation Cardio: Rhythm regular, rate normal, Heart sounds normal; Intact distal pulses. Radial pulses are 2+ and symmetric. (-) Murmur Pulmonary/Chest wall: Effort normal. (-) Respiratory distress, (-) Wheezes, (-) Rales Abd: Soft. (-) Tenderness, (-) Distension, (-) Guarding, (-) Rebound Musculoskeletal: (-) Edema Lymph: (-) Cervical adenopathy Neuro: Alert, Oriented x3, L facial droop with smiling, unable to wrinkle L forehead or raise L eyebrow, pt unable to fully close L eye. Sensations intact in all dermatomes, 5/5 strength, ambulates with normal gait, names month and age properly, speaking in full sentences. Psych: Mood and affect Normal NIH: 1 (see attached section for more indepth review) Triage Information Reviewed: Yes Vital Signs On Initial Exam: Initial Vitals Temp Pulse Resp BP Pulse Ox 98.1 F 86 16 139/96 100 12/09/19 10:10 12/09/19 10:10 12/09/19 10:10 12/09/19 10:10 12/09/19 10:10 Vital Signs Reviewed: Yes Procedures - Sedation Patient Received Moderate/Deep Sedation with Procedure: No Diagnostics - Vital Signs Vital Signs Temp Pulse Resp BP Pulse Ox 12/09/19 10:10 98.1 F 86 16 139/96 100 - Laboratory Lab Statement: Any lab studies that have been ordered have been reviewed, and results considered in the medical decision making process. NIH Scale - NIH Scale Level of Consciousness: Alert/Keenly Responsive Ask Patient the Month and His/Her Age: Both Correct Ask Pt to Open/Close Eyes and Biometrics Technician/Release Non-Paretic Hand: Both Correctly Best Gaze (Only Horizontal Eye Movement): Normal Visual Field Testing: No Visual Loss Facial Paresis-Pt to Smile & Close Eyes or Grimace Symmetry: Minor Paralysis Motor Function - Right Arm: No Drift-Holds 10 Seconds Motor Function - Left Arm: No Drift-Holds 10 Seconds Motor Function - Right Leg: No Drift-Holds 10 Seconds Motor Function - Left Leg: No Drift-Holds 10 Seconds Limb Ataxia-Must be out of Proportion to Weakness Present: Absent Sensory (Use Pinprick to Test Arms/Legs/Trunk/Face): Normal Best Language (Describe Picture, Name Items): No Aphasia Dysarthria (Read Several Words): Normal Extinction and Inattention: No Abnormality Total Score: 1 Course/Dx - Course Course Of Treatment: Patient is here with Ross's palsy. Patient has no other neurologic deficits. Patient has no forehead sparing. Patient has no known tick bites or recent Lyme rash. Patient started on acyclovir and low-dose prednisone as she is very sensitive to prednisone per her. - Diagnoses Provider Diagnoses: Ross palsy Discharge ED - Sign-Out/Discharge Documenting (check all that apply): Patient Departure - discharge - Discharge Plan Condition: Good Disposition: HOME Prescriptions: Acyclovir* [Zovirax 400 MG TAB*] 400 mg PO 5ID 7 Days #35 tab predniSONE [Prednisone 20 MG TAB] 20 mg PO QAM 7 Days #7 tablet Patient Education Materials: Ross Palsy (ED) Referrals: Louisa Jones MD [Primary Care Provider] - 2 Days Additional Instructions: PLEASE FOLLOW UP WITH YOUR PRIMARY CARE PROVIDER IN 1-3 DAYS AND RETURN TO THE EMERGENCY DEPARTMENT FOR ANY NEW OR WORSENING SYMPTOMS. These can include tingling and numbness extending down your body or being present in areas not previously mentioned in your visit including your L arm and leg for example. Take all medications prescribed to you as directed and for the intended duration. Put artificial tears in your L eye every hour while awake, wear an eye shield while sleeping. - Billing Disposition and Condition Condition: GOOD Disposition: Home - Attestation Statements Document Initiated by Scribe: Yes Documenting Scribe: Nirav Mahoney Provider For Whom Scribe is Documenting (Include Credential): Terence Alan MD Scribe Attestation: I, Nirav Mahoney, scribed for Terence Alan MD on 12/09/19 at 1125. Scribe Documentation Reviewed: Yes Provider Attestation: The documentation as recorded by the scribeNirav accurately reflects the service I personally performed and the decisions made by me, Terence Alan MD Status of Scribe Document: Viewed
[2019-12-09 10:45] VITALS: BP 165/88
== END 2019-12-09 10:45 | disposition home or self-care (01) ==
LOC: ED 10:09
DX: G51.0 Bell's palsy (principal); Z88.1 Allergy status to other antibiotic agents; Z88.0 Allergy status to penicillin
CPT/HCPCS: 99282